=== PATIENT | male | born 1985 | race Caucasian/White ===

== ENCOUNTER 2020-10-02 15:28 | Emergency (ER) | payer MEDICAID, OTHER ==
[~2020-10-02] VITALS: Ht 172.7 cm; Wt 67.1 kg
[2020-10-02 15:39] VITALS: BP 139/98
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
[2020-10-02] MEDS ORDERED: LIDOCAINE MPF 1% 10 MG/ML VIAL INJ ONE (15:55)
[2020-10-02] MEDS ORDERED: IBUPROFEN 600 MG TAB PO ONE (15:55)
--- NOTE | 2020-10-02 16:10 | NUR ---
X-Ray at bedside.
[2020-10-02] MEDS ORDERED: BACITRACIN OINT 500 UNITS/GM PKT TP ONE ×2 (16:59→17:10)
[2020-10-02] MEDS ORDERED: HYDROcodone/APAP 7.5/325 MG 1 TAB PO ONE (17:25)
[2020-10-02 17:29] VITALS: BP 130/90
--- NOTE | 2020-10-02 17:29 | NUR ---
Patient discharged with v/s stable. Written and verbal after care instructions given and explained. Patient alert, oriented and verbalized understanding of instructions. Ambulatory with steady gait. All questions addressed prior to discharge. ID band removed. Patient advised to follow up with PMD. Rx of [place], Motrin, Keflex given. Patient educated on indication of medication including possible reaction and side effects. Opportunity to ask questions provided and answered.
== END 2020-10-02 17:29 | disposition home or self-care (01) ==
LOC: MED 15:28
DX: S62.663A Nondisplaced fracture of distal phalanx of left middle finger, initial encounter for closed fracture (principal); S61.412A Laceration without foreign body of left hand, initial encounter; W31.89XA Contact with other specified machinery, initial encounter; Y93.89 Activity, other specified; Y92.89 Other specified places as the place of occurrence of the external cause; Y99.8 Other external cause status
CPT/HCPCS: 12001; 73140; 90471; 90715; 99283; J2001